=== PATIENT | female | born 1935 | race African-American/Black ===

== ENCOUNTER → 2021-09-23 | Day surgery (SDC) | payer MEDICARE ==
[~2021-09-23] VITALS: Ht 154.9 cm; Wt 104.0 kg
[~2021-09-23] MED LIST: ATOR40TA59 PO; BIMA2.5D OP; BUME1TAB3 PO; CHOL20009 PO; FERR-36 PO; HYDR-2869 PO; HYDROmorphone 2 MG/ML INJ. IVP PRN; IV NORMAL SALINE 1000ML BAG 1,000 ML IV ONE; IV RINGERS,LACTATED 1000ML 1,000 ML IV SCH; LEVO25TA4 PO; MORPHINE SULFATE 2 MG/ML INJ. IVP PRN; PROCHLORPERAZINE 10 MG/2 ML VIAL. IVP PRN; PROPOFOL 10 MG/ML (20ML) VIAL. IV ONE; SPIR50TA4 PO; TIMO5DRO26 OP; fentaNYL PF VIAL 100 MCG/2 ML VIAL IVP PRN
[2021-09-23 09:11] VITALS: BP 233/93
[2021-09-23 10:15] VITALS: BP 155/70
== END | disposition home or self-care (01) ==
LOC: ENDOS 08:33
PROVIDERS: ATTEND Internal Medicine Gastroenterology
DX: K92.1 Melena (principal); K64.0 First degree hemorrhoids; K57.30 Diverticulosis of large intestine without perforation or abscess without bleeding; K63.89 Other specified diseases of intestine; E78.00 Pure hypercholesterolemia, unspecified; K21.9 Gastro-esophageal reflux disease without esophagitis; M19.90 Unspecified osteoarthritis, unspecified site; I12.9 Hypertensive chronic kidney disease with stage 1 through stage 4 chronic kidney disease, or unspecified chronic kidney disease; N18.9 Chronic kidney disease, unspecified; Z90.49 Acquired absence of other specified parts of digestive tract; Z90.710 Acquired absence of both cervix and uterus; Z98.890 Other specified postprocedural states; Z79.899 Other long term (current) drug therapy; Z88.8 Allergy status to other drugs, medicaments and biological substances
CPT/HCPCS: 45378; J2704